=== PATIENT | male | born 1940 | race Caucasian/White ===

== ENCOUNTER 2019-06-21 15:15 | Emergency (ER) | payer MEDICARE ==
[2019-06-21] MEDS ORDERED: Diph,Pert(Acell),Tet Vac 0.5 ML SYR IM ONE (15:55)
--- NOTE | 2019-06-21 16:01 | Emergency Department Record ---
History of Present Illness - General Chief Complaint: Wound, check Stated Complaint: rt middle finger lac Time Seen by Provider: 06/21/19 15:48 Source: Patient Mode of arrival: Ambulatory Limitations: No limitations - History of Present Illness Initial Comments: The patient cut the tip of the R 3rd finger with his new tomato slicer and hour ago. His Td is not UTD. The patient denies any other injuries. MD Complaint: Other Onset/Timin -: Hour(s) Initial Visit For: Laceration Returns Today for: Other Symptoms Since Prior Visit: No new symptoms Associated Symptoms: None - Related Data Home Medications Medication Instructions Recorded Confirmed Last Taken Atorvastatin Calcium [Lipitor] 10 mg PO DAILY 06/21/19 06/21/19 06/21/19 Folic Acid 1 mg PO DAILY 06/21/19 06/21/19 06/21/19 Indapamide [Lozol] 2.5 mg PO DAILY 06/21/19 06/21/19 06/21/19 Metformin HCl 500 mg PO BID 06/21/19 06/21/19 06/21/19 Nadolol [Corgard] 20 mg PO DAILY 06/21/19 06/21/19 06/21/19 Ramipril [Altace] 10 mg PO DAILY 06/21/19 06/21/19 06/21/19 Ramipril [Altace] 10 mg PO DAILY 06/21/19 06/21/19 06/21/19 Previous Rx's Medication Instructions Recorded Cephalexin [Keflex] 500 mg PO TID #15 cap 06/21/19 Allergies Allergy/AdvReac Type Severity Reaction Status Date / Time No Known Drug Allergies Allergy Verified 06/21/19 15:44 Travel Screening - Travel/Exposure Within Last 30 Days Have you traveled within the last 30 days?: No - Travel/Exposure Within Last Year Have you traveled outside the [place] in the last year?: No - Additonal Travel Details Have you been exposed to anyone with a communicable illness?: No - Travel Symptoms Symptom Screening: None Review of Systems Constitutional: Denies: Chills, Fever Past Medical History - SOCIAL HISTORY Smoking Status: Never smoker Alcohol Use: Occasional, Heavy Alcohol Use Comment: 2-3 beers daily Drug Use: None - RESPIRATORY Hx Respiratory Disorders: No - CARDIOVASCULAR Hx Cardio Disorders: Yes Hx Hypertension: Yes - NEURO Hx Neuro Disorders: No - GI Hx GI Disorders: No - Hx Genitourinary Disorders: Yes Hx Prostate Problems: Yes - ENDOCRINE Hx Endocrine Disorders: Yes Hx Diabetes: Yes Hx Thyroid Disease: No - MUSCULOSKELETAL Hx Musculoskeletal Disorders: No - PSYCH Hx Psych Problems: No - HEMATOLOGY/ONCOLOGY Hx Cancer: Yes Hx Chemotherapy: Yes Hx Radiation Therapy: Yes Family Medical History Any Significant Family History?: No Physical Exam - General General Appearance: Alert, Cooperative, No acute distress - Head Head exam: Atraumatic, Normocephalic - Extremities Extremities exam: Full ROM, Tenderness. negative: Normal inspection (There is a 3x4 mm avulsion to the tip of the R 3rd finger. It is bleeding mildly and is clearly not thru the dermis completely. There is nothing to suture.), Joint swelling Image of Finger Tip: 1 - Avulsed area. Course Vital Signs 06/21/19 15:38 Temperature 97.8 F Pulse Rate 100 H Respiratory 19 Rate Blood Pressure 167/84 Pulse Ox 98 - Reevaluation(s) Reevaluation #1: We did clean the tip of the finger with sterile water and betadine. A tube gauze dressing was then applied. The patient is to keep the finger clean and dry for 2 days and to take Keflex as directed. 06/21/19 15:58 Disposition Disposition: Discharge Clinical Impression: Laceration of finger Qualifiers: Encounter type: initial encounter Finger: middle finger Damage to nail status: without damage Foreign body presence: without foreign body Laterality: right Qualified Code(s): S61.212A - Laceration without foreign body of right middle finger without damage to nail, initial encounter Disposition: Home, Self-Care Condition: (2) Stable Instructions: Finger Laceration (ED) Additional Instructions: Please use Tylenol for pain and take the Keflex as directed. Keep the finger clean and dry for 2 days then remove the dressing and keep a bandaid on during the day. Return to the ER for any worsening issues. Prescriptions: Cephalexin [Keflex] 500 mg PO TID #15 cap Forms: Patient Portal Access Time of Disposition: 16:01 Quality - Quality Measures Quality Measures: N/A - Blood Pressure Screening View Details: Yes Does Patient Have Any of the Following: Active Dx of HTN Blood Pressure Classification: Pre-Hypertensive BP Reading Systolic Measurement: 167 Diastolic Measurement: 84 Screening for High Blood Pressure: Patient Exclusion, Hx of HTN [[id number]]
== END 2019-06-21 16:21 | disposition home or self-care (01) ==
LOC: ER 15:15
DX: S61.212A Laceration without foreign body of right middle finger without damage to nail, initial encounter (principal); W26.8XXA Contact with other sharp object(s), not elsewhere classified, initial encounter; I10 Essential (primary) hypertension
CPT/HCPCS: 90715; 96372; 99283